=== PATIENT | female | born 2000 ===

== ENCOUNTER → 2021-10-24 15:16 | Outpatient (CLI) | payer MEDICAID, SELFPAY ==
--- NOTE | 2021-10-24 | DI.US_ITS ---
Exam(s) US PELVIS TRANSVAGINAL EXAM: US PELVIS TRANSVAGINAL CLINICAL HISTORY: RT SIDED PELVIC PAIN CONCERN FOR RUPTURED OVARIAN CYST R10.2 TECHNIQUE: Ultrasound of the pelvis was performed both transabdominal and transvaginal. COMPARISON: No exams were available for comparison FINDINGS: UTERUS: Measures 4.7 cm length x 2.5 cm AP x 3.2 cm wide. There are no uterine fibroids.There is an IUD in the endometrial canal. Endometrial thickness measures mm. There is no fluid in the endometrial canal. CERVIX: There are no obvious nabothian cysts. RIGHT OVARY: Measures 3.3 x 3.2 x 2.6 cm In addition to sub cm follicular cysts there is also a hemorrhagic appearing structure in the right o vary measuring 1.9 x 1.2 x 1.4 cm. LEFT OVARY: Measures 2.9 x 2.2 x 1.4 cm Contains small sub cm follicular cysts. No large cysts nor solid lesions. CUL-DE-SAC: There is small amount of free fluid around the fundus of the uterus. IMPRESSION: 1. There is an IUD in the upper endometrial canal. No evidence of intrauterine gestation. 2. There is a 19 x 12 x 14 millimeter complex cyst in the right ovary, this in addition to small sub cm follicular cysts. This probably hemorrhagic cyst. Recommend follow-up ultrasound in a few months t mikaela. Sys the opposite-left ovary appears unremarkable. 3. Small amount of free fluid noted adjacent to the fundus of the uterus. DATA REPOSITORY:
== END ==
PROVIDERS: Visit Provider Advanced Practice Midwife
DX: N83.01 Follicular cyst of right ovary (principal)
CPT/HCPCS: 76830; 76856